=== PATIENT | male | born 1960 | race Caucasian/White ===

== ENCOUNTER 2020-10-03 07:59 | Outpatient (CLI) | payer BC, SELFPAY ==
--- NOTE | 2020-10-03 10:45 | FL_ITS ---
WS: [id number] Barium swallow and esophagram, 10/03/2020 Clinical Data: PAIN OF ESOPHAGUS/DYSPHAGIA Comparison: None. Fluoroscopy time: 1.1 minutes. Findings: The patient swallowed the thick and thin barium, and it flowed through the hypopharynx without hesita tion. No stricture, mass, polyp or erosion was seen. No penetration or aspiration occurred The barium entered the esophagus and there was normal motility throughout. No hiatal hernia, strictur e, polyp, mass, erosion or ulcer was noted. There is prominent gastroesophageal reflux which occurred from the gastroesophageal junction to the thoracic inlet. There is no mucosal erosion. FL/FL barium swallow 19873 Impression: Gastroesophageal reflux without hiatal hernia or mucosal ulceration.
== END 2020-10-03 08:00 | disposition home or self-care (01) ==
LOC: RADWPI 08:03
PROVIDERS: PCP Family Medicine; Visit Provider Otolaryngology
DX: K22.8 Other specified diseases of esophagus (principal); R13.10 Dysphagia, unspecified
CPT/HCPCS: 74220

== ENCOUNTER → 2020-10-13 11:57 | Outpatient (BNVA) | payer BC, SELFPAY | PROVIDERS: PCP Family Medicine; Visit Provider Surgery | DX: Z20.822 Contact with and (suspected) exposure to COVID-19 (principal); Z11.52 Encounter for screening for COVID-19 | CPT/HCPCS: 87635 ==

== ENCOUNTER 2020-10-17 09:59 | Day surgery (SDC) | payer BC, SELFPAY ==
[2020-10-15 14:19] VITALS: BMI 34.0
--- NOTE | 2020-10-17 10:11 | ANES.PREANE2 ---
Pre-Anesthetic Assessment Pre-Anesthetic Assessment: Height/Weight: Height 1.78 m Weight 107.501 kg Preop Diagnosis: spasms Proposed Procedure: Operation Date: 10/17/20 11:30 Proposed Procedures p EGD Dilation W/ Balloon 46137 r13.10(Not Applicable) - Gerard Kaplan MD Familial anesthetic complications: None Was Beta Keyur taken within 24 hours: N/A Was Clonidine taken within 24 hours: N/A Last intake: > 8 hrs Social: Social History: No alcohol and No tobacco Exam: Pre-Anes Outpt Exam: alert, oriented x 3, clear to auscultation bilaterally and regular rate & rhythm Airway: Cervical ROM: WNL MP: 2 Dentition: Full GI: GI: GERD Anesthetic Plan: ASA status: 1 Anesthesia: MAC Risk of > 500 ml blood loss (7ml/kg in children): No Other Pertinent Information: glycopyrolate for hyperhydrosis PFSH Anesthesia PFSH: Medical History (Updated 09/26/20 @ 11:48 by Gerard Kaplan MD) Hyperlipidemia Social History Quit status (tobacco): has quit using tobacco Year quit tobacco: 1998 Former quit date comment: 1 PPD X 18 YEARS Data Anesthesia Cardiac Studies: No Data to Display
[2020-10-17 10:36] VITALS: BP 145/91; PULSE 60; RESP 16; TEMP 36.4; O2SAT 97
[2020-10-17] MEDS: sodium chloride 0.9% 1,000 ML 30 ML IV (10:42)
--- NOTE | 2020-10-17 12:10 | W.PM.OPSUD ---
Surgery/Procedure H&P Update DATE OF PROCEDURE: October 17, 2020 DATE H&P PERFORMED: 09/26/20 H&P UPDATE INFORMATION: I have reviewed H&P completed within last 30 days, I have examined patient prior to procedure and No changes to prior documentation PREOP DIAGNOSIS: Dysphagia PLANNED PROCEDURE: Operation Date: 10/17/20 11:30 Proposed Procedures p EGD Dilation W/ Balloon 54927 r13.10(Not Applicable) - Gerard Kaplan MD
[2020-10-17 12:23] VITALS: BP 121/82; PULSE 68; RESP 17; TEMP 36.3; O2SAT 91
[2020-10-17 12:36] VITALS: BP 116/86; PULSE 59; RESP 18; O2SAT 96
--- NOTE | 2020-10-17 14:53 | ANE.PACU2 ---
Inpatient post-anesthesia follow up: Airway intact: Yes Vital signs: Temperature 97.3 F Pulse Rate 59 Respiratory Rate 18 Blood Pressure 116/86 Pulse Oximetry 96 Oxygen Delivery Me thod Room Air Oxygen Flow Rate 2 Fraction of Inspir ed Oxygen Hydration adequate: Yes Nausea and vomiting: No Pain level: 1 Mental status: Baseline
== END 2020-10-17 12:45 | disposition home or self-care (01) ==
PROVIDERS: PCP Family Medicine; Visit Provider Surgery
DX: R13.10 Dysphagia, unspecified (principal); K29.70 Gastritis, unspecified, without bleeding; K21.9 Gastro-esophageal reflux disease without esophagitis; Z87.891 Personal history of nicotine dependence; Z79.82 Long term (current) use of aspirin
CPT/HCPCS: 43239; 88305; 96365; J2704; J7030

== ENCOUNTER → 2022-01-19 07:43 | Outpatient (BNVA) | payer BC, SELFPAY | PROVIDERS: Visit Provider Family Medicine | DX: N52.9 Male erectile dysfunction, unspecified (principal); E29.1 Testicular hypofunction; K21.00 Gastro-esophageal reflux disease with esophagitis, without bleeding | CPT/HCPCS: 80053; 80061; 84153; 84402; 85025 ==

== ENCOUNTER → 2023-05-13 08:04 | Outpatient (BNVA) | payer BC, SELFPAY | PROVIDERS: PCP Family Medicine; Visit Provider Family Medicine | DX: I10 Essential (primary) hypertension (principal); E78.2 Mixed hyperlipidemia; E29.1 Testicular hypofunction; Z12.5 Encounter for screening for malignant neoplasm of prostate | CPT/HCPCS: 80053; 80061; 84403; 84443; 85025; G0103 ==

== ENCOUNTER 2023-06-24 12:21 | Outpatient (CLI) | payer BC, SELFPAY ==
[2023-06-24 13:08] VITALS: BMI 33.7
--- NOTE | 2023-06-24 13:11 | ECG_ITS ---
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 Interpretive Statements NAME OF STUDY: TREADMILL STRESS TEST INDICATION: [Stable Angina] EXERCISE DATA: The patient was exercised by Antoni protocol. Baseline heart rate was 78 beats per minute. Baseline blood pressure was 145/100 millimeters of mercury. Maximal predicted heart rate was 159 beats per minute. Maximum heart rate achieved was 154 which was 96% of the maximum predicted heart rate. Maximum blood pressure was 212/102 millimeters of mercury. Total exercise time was 9 minutes. Maximum METs achieved was 10.2. The reason for ending the test was completion of protocol. The patient complained of shortness of breath during the stress test, which then resolved at the end of the test. ELECTROCARDIOGRAM: BASELINE: Showed sinus rhythm, normal axis, no significant ST-T changes at the baseline noted. [] EXERCISE: At the peak exercise level, [] No significant ST-T changes suggestive of ischemia noted. [] RECOVERY: During the recovery period, heart rate dropped appropriately. No significant ST-T changes in the recovery suggestive of ischemia noted. PVCs were noted. [] CONCLUSION: 1. Exercise capacity is good. 2. Heart rate response was appropriate. 3. Blood pressure response was hypertensive. 4. Symptoms not suggestive of ischemia. 5. Stress test did not show ischemia. Electronically Signed On 06-30-2023 12:53:53 CDT by Otoniel Mark M.D. [id number]
[2023-06-24 13:37] VITALS: BP 166/62; PULSE 99
== END 2023-06-24 12:22 | disposition home or self-care (01) ==
PROVIDERS: PCP Family Medicine; Visit Provider Family Medicine
DX: I10 Essential (primary) hypertension (principal)
CPT/HCPCS: 93017

== ENCOUNTER → 2024-08-08 07:36 | Outpatient (BNVA) | payer BC, SELFPAY | PROVIDERS: PCP Family Medicine; Visit Provider Family Medicine | DX: E29.1 Testicular hypofunction (principal); R79.89 Other specified abnormal findings of blood chemistry; N52.9 Male erectile dysfunction, unspecified; I10 Essential (primary) hypertension; Z12.5 Encounter for screening for malignant neoplasm of prostate; E55.9 Vitamin D deficiency, unspecified | CPT/HCPCS: 80053; 80061; 82306; 82607; 84403; 84439; 84443; 85025; G0103 ==

== ENCOUNTER → 2024-08-20 08:26 | Outpatient (BNVA) | payer BC, SELFPAY | PROVIDERS: PCP Family Medicine; Referring Provider Family Medicine; Visit Provider Anesthesiology Pain Medicine | DX: M47.816 Spondylosis without myelopathy or radiculopathy, lumbar region (principal); M25.78 Osteophyte, vertebrae | CPT/HCPCS: 72110 ==

== ENCOUNTER 2024-08-21 14:53 | Outpatient (CLI) | payer BC, SELFPAY ==
--- NOTE | 2024-08-21 15:15 | MR_ITS ---
WS: [id number] MRI LUMBAR SPINE NONCONTRAST TECHNIQUE: Sagittal T1, T2 and STIR imaging. Axial T1 and T2 imaging. CLINICAL INFORMATION: M54.16 - Radiculopathy, lumbar region COMPARISON: 2017 FINDINGS: Mild lumbar curve. No acute compression. Moderate to advanced spondylitic changes with multilevel lumbar canal stenosis. Disc space narrowing worse at. L2-L3 L3-L4 and L4-L5. T12-L1: LEFT foraminal protrusion with mild LEFT foraminal narrowing. Mild facet arthropathy. L1-L2: Shallow central protrusion. Moderate central canal stenosis progressed compared to previous. Moderate facet arthropathy. Moderate LEFT foraminal narrowing. L2-L3: Central and RIGHT subarticular disc protrusion. Moderate to severe central canal stenosis progressed compared to previous. Impingement RIGHT subarticular recess. Moderate facet arthropathy. Moderate foraminal narrowing. L3-L4: Disc osteophyte complex with moderate central canal stenosis. Narrowing of the subarticular recess. Moderate facet arthropathy. Moderate bilateral foraminal narrowing RIGHT greater than LEFT. L4-L5: Mild disc bulging with moderate central canal stenosis. Impingement RIGHT subarticular recess. Bilateral foraminal protrusions with moderate bilateral foraminal narrowing. L5-S1: Disc bulge with a shallow central protrusion. Slight impingement of traversing S1 nerve roots. Advanced facet arthropathy. Moderate RIGHT and mild LEFT foraminal narrowing. Visualized pelvic bony structures: Normal. Paravertebral soft tissues: Normal. Large RIGHT renal cyst measuring 8.1 cm Smaller LEFT renal cyst. MR/MR lumbar spine wo con* [id number] IMPRESSION: 1. Moderate to severe central canal stenosis L2-3 progressed compared to previ ous with a central and RIGHT subarticular disc protrusion. 2. Moderate central canal stenosis L1-2 L3-4 and L4-5 also progressed. 3. Disc bulging L5-S1 impinges the traversing S1 nerve roots with mild central canal stenosis. 4. Moderate foraminal narrowing worse at LEFT L1-2, RIGHT L2-3, bilateral L3-4 , RIGHT L4-5, and LEFT L5-S1. 5. Advanced facet arthropathy L5-S1.
== END 2024-08-21 14:54 | disposition home or self-care (01) ==
PROVIDERS: PCP Family Medicine; Visit Provider Anesthesiology Pain Medicine
DX: M54.16 Radiculopathy, lumbar region (principal); M48.061 Spinal stenosis, lumbar region without neurogenic claudication; M51.26 Other intervertebral disc displacement, lumbar region; M51.379 Other intervertebral disc degeneration, lumbosacral region without mention of lumbar back pain or lower extremity pain; M48.07 Spinal stenosis, lumbosacral region; M47.897 Other spondylosis, lumbosacral region; M43.8X6 Other specified deforming dorsopathies, lumbar region; M47.896 Other spondylosis, lumbar region; M51.25 Other intervertebral disc displacement, thoracolumbar region; M48.05 Spinal stenosis, thoracolumbar region; M47.895 Other spondylosis, thoracolumbar region; M25.78 Osteophyte, vertebrae; M51.369 Other intervertebral disc degeneration, lumbar region without mention of lumbar back pain or lower extremity pain; N28.1 Cyst of kidney, acquired
CPT/HCPCS: 72148